=== PATIENT | male | born 1990 | race African-American/Black ===

== ENCOUNTER 2018-11-22 21:26 | Emergency (ER) | payer SELFPAY ==
[~2018-11-22] VITALS: Ht 188 cm; Wt 106.0 kg
[2018-11-22] MEDS ORDERED: LORAZEPAM 2MG/ML CPJ IM STA (21:51)
[2018-11-22] MEDS ORDERED: HALOPERIDOL LACTATE 5MG/ML VIAL IM STA (21:51)
[2018-11-22] MEDS ORDERED: DIPHENHYDRAMINE 50MG/ML VIAL IM ONE (22:00)
[2018-11-22] MEDS ORDERED: OLANZAPINE 10 MG/VIAL IM ONE (23:45)
[2018-11-22] MEDS ORDERED: HALOPERIDOL LACTATE 5MG/ML VIAL IM ONE (23:45)
[2018-11-23 01:39] LABS: BASOPHILS % 0.5 % (0.0-2.0); HEMATOCRIT. 42.3 % (42.0-52.0); HEMOGLOBIN. 14.6 g/dL (14.0-18.0); LYMPHOCYTES % 13.2 % (20.0-50.0); MEAN CORPUSCULAR HEMOGLOBIN 28.3 pg (28.0-32.0); MEAN CORPUSCULAR VOLUME 81.9 fL (80.0-94.0); MEAN PLATELET VOLUME 8.3 fl (7.4-10.4); MONOCYTES % 6.2 % (2.0-8.0); NEUTROPHILS % 80.1 % (40.0-76.0); PLATELET 330 x1000/uL (130-400); RED BLOOD CELL COUNT 5.17 mill/uL (4.7-6.1); RED CELL DISTRIBUTION WIDTH 14.3 % (11.6-14.6)
[2018-11-23 01:47] LABS: CHLORIDE 106 mEq/L (98-107)
[2018-11-23 01:51] LABS: ETHANOL BLOOD < 10 mg/dL
[2018-11-23 02:19] LABS: CLARITY URINE CLEAR (CLEAR); COLOR URINE YELLOW (YELLOW); KETONES URINE NEGATIVE (NEGATIVE); LEUKOCYTE ESTERASE URINE NEGATIVE (NEGATIVE); NITRITE URINE NEGATIVE (NEGATIVE); OCCULT BLOOD URINE NEGATIVE (NEGATIVE); PROTEIN URINE NEGATIVE (NEGATIVE); SPECIFIC GRAVITY URINE 1.015 (1.005-1.030); UROBILINOGEN URINE 0.2 E.U./dL (0.2-1.0)
[2018-11-23 02:33] LABS: *AMPHETAMINES SCREEN URINE PRESUMTIVE POSITIVE (NEGATIVE); *BARBITURATES SCREEN URINE NEGATIVE (NEGATIVE); *COCAINE SCREEN URINE NEGATIVE (NEGATIVE)
[2018-11-23 02:34] LABS: CANNABINOID URINE SCREEN PRESUMTIVE POSITIVE (NEGATIVE); METHADONE URINE SCREEN NEGATIVE (NEGATIVE); OPIATES URINE SCREEN NEGATIVE (NEGATIVE); PHENCYCLIDINE URINE SCREEN NEGATIVE (NEGATIVE)
[2018-11-23 02:37] LABS: *BENZODIAZEPINES SCREEN URINE PRESUMTIVE POSITIVE (NEGATIVE)
[2018-11-24 02:30] VITALS: BP 121/84
[2018-11-24] MEDS ORDERED: TRAZODONE HCL 50MG TABLET PO SCH (21:00)
== END 2018-11-24 07:00 | disposition left against medical advice (07) ==
LOC: ER 22:05
DX: F15.129 Other stimulant abuse with intoxication, unspecified (principal); F16.10 Hallucinogen abuse, uncomplicated; R45.1 Restlessness and agitation
CPT/HCPCS: 36415; 93005; 96372; 99291; J1200; J1630; J2060; J3490; Z7610

== ENCOUNTER 2019-02-19 13:51 | Emergency (ER) | payer MEDICAID, OTHER ==
[~2019-02-19] VITALS: Ht 190.5 cm; Wt 100.0 kg
[2019-02-19] MEDS ORDERED: SODIUM CHLORIDE 0.9% 1,000 ML IV ONE (14:09)
[2019-02-19] MEDS ORDERED: DIPHENHYDRAMINE 50MG/ML VIAL IM STA (14:20)
[2019-02-19] MEDS ORDERED: LORAZEPAM 2MG/ML CPJ IM STA (14:20)
[2019-02-19] MEDS ORDERED: OLANZAPINE 10 MG/VIAL IM STA (14:20)
[2019-02-19 14:55] LABS: BASOPHILS % 0.5 % (0.0-2.0); EOSINOPHILS % 0.1 % (0.0-5.0); HEMATOCRIT. 39.4 % (42.0-52.0); HEMOGLOBIN. 13.6 g/dL (14.0-18.0); LYMPHOCYTES % 17.8 % (20.0-50.0); MEAN CORPUSCULAR HEMOGLOBIN 28.1 pg (28.0-32.0); MEAN CORPUSCULAR VOLUME 81.3 fL (80.0-94.0); MEAN PLATELET VOLUME 8.4 fl (7.4-10.4); MONOCYTES % 8.2 % (2.0-8.0); NEUTROPHILS % 73.4 % (40.0-76.0); PLATELET 195 x1000/uL (130-400); RED BLOOD CELL COUNT 4.85 mill/uL (4.7-6.1); RED CELL DISTRIBUTION WIDTH 15.6 % (11.6-14.6)
[2019-02-19 15:00] LABS: CHLORIDE 105 mEq/L (98-107)
[2019-02-19 15:07] LABS: ETHANOL BLOOD < 10 mg/dL
[2019-02-19 16:59] LABS: CLARITY URINE CLEAR (CLEAR); COLOR URINE YELLOW (YELLOW); KETONES URINE NEGATIVE (NEGATIVE); LEUKOCYTE ESTERASE URINE NEGATIVE (NEGATIVE); NITRITE URINE NEGATIVE (NEGATIVE); OCCULT BLOOD URINE NEGATIVE (NEGATIVE); PH URINE 7.5 (4.5-8.0); PROTEIN URINE NEGATIVE (NEGATIVE); SPECIFIC GRAVITY URINE 1.005 (1.005-1.030); UROBILINOGEN URINE 0.2 E.U./dL (0.2-1.0)
[2019-02-19 17:35] LABS: *AMPHETAMINES SCREEN URINE PRESUMTIVE POSITIVE (NEGATIVE)
[2019-02-19 17:36] LABS: *BARBITURATES SCREEN URINE NEGATIVE (NEGATIVE); *BENZODIAZEPINES SCREEN URINE NEGATIVE (NEGATIVE); *COCAINE SCREEN URINE NEGATIVE (NEGATIVE); METHADONE URINE SCREEN NEGATIVE (NEGATIVE); OPIATES URINE SCREEN NEGATIVE (NEGATIVE); PHENCYCLIDINE URINE SCREEN NEGATIVE (NEGATIVE)
[2019-02-19 17:37] LABS: CANNABINOID URINE SCREEN PRESUMTIVE POSITIVE (NEGATIVE)
[2019-02-19] MEDS ORDERED: LORAZEPAM 1MG TABLET PO ONE (17:45)
[2019-02-19] MEDS ORDERED: OLANZAPINE 10 MG/VIAL IM ONE (18:30)
[2019-02-19] MEDS ORDERED: LORAZEPAM 2MG/ML CPJ IM ONE (18:30)
[2019-02-20] MEDS: OLANZAPINE 10MG TABLET PO SCH (09:22)
[2019-02-20] MEDS ORDERED: OLANZAPINE 10 MG/VIAL IM ONE ×2 (11:00→16:00)
[2019-02-20] MEDS ORDERED: HALOPERIDOL LACTATE 5MG/ML VIAL IM ONE ×2 (16:00→16:04)
[2019-02-20] MEDS ORDERED: LORAZEPAM 2MG/ML CPJ IM ONE (16:15)
[2019-02-20] MEDS ORDERED: POTASSIUM CHLORIDE 20MEQ TABLET SR PO ONE (22:30)
[2019-02-21] MEDS: OLANZAPINE 10MG TABLET PO SCH (11:18)
[2019-02-21 11:30] VITALS: BP 131/78
== END 2019-02-21 11:45 ==
LOC: ER 14:59
DX: T50.912A Poisoning by multiple unspecified drugs, medicaments and biological substances, intentional self-harm, initial encounter (principal); R45.851 Suicidal ideations; R61 Generalized hyperhidrosis; R10.84 Generalized abdominal pain; Y92.89 Other specified places as the place of occurrence of the external cause
CPT/HCPCS: 36415; 80053; 80305; 80307; 80320; 80329; 81003; 84132; 85025; 93005; 96372; 99285; J1200; J1630; J2060; J3490; J7030; Z7610; 99284; G0480

== ENCOUNTER 2019-08-23 02:13 | Emergency (ER) | payer MEDICAID | END 2019-08-23 03:45 | disposition left against medical advice (07) | LOC: ER 02:13 | DX: Z53.21 Procedure and treatment not carried out due to patient leaving prior to being seen by health care provider (principal) ==

== ENCOUNTER 2019-08-23 04:50 | Emergency (ER) | payer MEDICAID | END 2019-08-23 05:25 | disposition left against medical advice (07) | LOC: ER 04:50 | DX: Z53.21 Procedure and treatment not carried out due to patient leaving prior to being seen by health care provider (principal) ==